=== PATIENT | female | born 1950 | race Caucasian/White ===

== ENCOUNTER → 2019-04-05 11:56 | Outpatient (CLI) | payer OTHER, SELFPAY ==
--- NOTE | 2019-04-05 | DI.MG.S_ITS ---
BILATERAL DIGITAL SCREENING MAMMOGRAM 3D/2D WITH CAD: 04/05/2019 CLINICAL: Routine screening. Comparison is made to exams dated: 03/26/2017 mammogram, 03/16/2015 mammogram, and 11/15/2012 mammogram - [facility]. There are scattered fibroglandular elements in both breasts. Current study was also evaluated with a Computer Aided Detection (CAD) system. There are benign vascular calcifications in both breasts. There is a mole marker on the left breast. No significant masses, calcifications, or other findings are seen in either breast. There has been no significant interval change. IMPRESSION: There is no mammographic evidence of malignancy. A 1 year screening mammogram is recommended. This exam was interpreted at Station ID: [id number]. NOTE: For mammograms, a report in lay terms will be sent to the patient. Approximately 15% of breast malignancies will not be visualized mammographically. In the management of a palpable breast mass, a negative mammogram must not discourage biopsy of a clinically suspicious lesion. Electronically Signed By: Brian johnston/emory:04/05/2019 18:29:29 letter sent: Normal Exam ACR BI-RADS Category 2: Benign Finding(s) 3342F
== END ==
PROVIDERS: PCP Nurse Practitioner Family; Visit Provider Nurse Practitioner Family
DX: Z12.31 Encounter for screening mammogram for malignant neoplasm of breast (principal)
CPT/HCPCS: 77063; 77067

== ENCOUNTER → 2020-05-23 13:43 | Outpatient (CLI) | payer OTHER, SELFPAY | PROVIDERS: PCP Nurse Practitioner Family; Referring Provider Internal Medicine; Visit Provider Internal Medicine | DX: M85.851 Other specified disorders of bone density and structure, right thigh (principal) | CPT/HCPCS: 77080 ==

== ENCOUNTER → 2020-08-02 15:32 | Outpatient (CLI) | payer MEDICARE, SELFPAY ==
[2020-08-02] MEDS: COVID-19 VACC, Ad26(JANSSEN)/PF 0.5 ML IM (15:34)
== END ==
PROVIDERS: PCP Nurse Practitioner Family; Visit Provider Internal Medicine
DX: Z23 Encounter for immunization (principal)
CPT/HCPCS: 0031A; 91303

== ENCOUNTER → 2021-09-25 15:29 | Outpatient (CLI) | payer OTHER, SELFPAY ==
--- NOTE | 2021-09-25 | DI.MG.S_ITS ---
BILATERAL DIGITAL SCREENING MAMMOGRAM 3D/2D WITH CAD: 09/25/2021 CLINICAL: Routine screening. Family history of breast cancer. Comparison is made to exams dated: 04/05/2019 mammogram, 03/26/2017 mammogram, 03/16/2015 mammogram, and 11/15/2012 mammogram - [facility]. There are scattered fibroglandular elements in both breasts. Current study was also evaluated with a Computer Aided Detection (CAD) system. There are benign vascular calcifications in both breasts. There is a mole marker on the left breast. No significant masses, calcifications, or other findings are seen in either breast. There has been no significant interval change. IMPRESSION: BENIGN There is no mammographic evidence of malignancy. A 1 year screening mammogram is recommended. This exam was interpreted at Station ID: [id number]. NOTE: For mammograms, a report in lay terms will be sent to the patient. Approximately 15% of breast malignancies will not be visualized mammographically. In the management of a palpable breast mass, a negative mammogram must not discourage biopsy of a clinically suspicious lesion. Electronically Signed By: Zain glover/emory:09/25/2021 16:20:49 letter sent: Normal Exam ACR BI-RADS Category 2: Benign Finding(s) 3342F
== END ==
PROVIDERS: PCP Internal Medicine; Referring Provider Internal Medicine; Visit Provider Internal Medicine
DX: Z12.31 Encounter for screening mammogram for malignant neoplasm of breast (principal); Z80.3 Family history of malignant neoplasm of breast
CPT/HCPCS: 77063; 77067

== ENCOUNTER → 2022-04-03 12:56 | Outpatient (CLI) | payer OTHER, SELFPAY | PROVIDERS: PCP Internal Medicine; Referring Provider Internal Medicine; Visit Provider Internal Medicine | DX: Z78.0 Asymptomatic menopausal state (principal); M85.851 Other specified disorders of bone density and structure, right thigh; Z13.820 Encounter for screening for osteoporosis | CPT/HCPCS: 77080 ==

== ENCOUNTER → 2023-03-31 12:16 | Outpatient (CLI) | payer OTHER, SELFPAY ==
--- NOTE | 2023-03-31 | DI.RAD.S_ITS ---
PROCEDURE: XR SHOULDER RT MIN 2V INDICATIONS: SHOULDER PAIN TECHNIQUE: 3 views of the shoulder were acquired. COMPARISON: None. FINDINGS: Bones: No fractures or dislocations. No suspicious bony lesions. Visualized ribs appear intact. Mild acromioclavicular and glenohumeral joint osteoarthritis. Soft tissues: No suspicious soft tissue calcifications. IMPRESSION: No fracture. No acute osseous lesion. If symptoms and/or clinical suspicion for pathology persists, further assessment with repeat radiographs (7-10 days) or advanced imaging (e.g. CT, MRI or bone scan) should be considered. Dictated by: Columba Irwin MD, PhD on 03/31/2023 at 13:27 Approved by: Columba Irwin MD, PhD on 03/31/2023 at 13:27
== END ==
PROVIDERS: PCP Internal Medicine; Referring Provider Internal Medicine; Visit Provider Internal Medicine
DX: M19.011 Primary osteoarthritis, right shoulder (principal); M25.511 Pain in right shoulder
CPT/HCPCS: 73030

== ENCOUNTER 2023-07-06 13:34 | Emergency (ER) | payer OTHER, SELFPAY ==
[2023-07-06 13:54] VITALS: BP 161/88; PULSE 72; RESP 16; TEMP 36.5; O2SAT 99; BMI 29.0
[2023-07-06 15:34] LABS: Alanine Aminotransferase 23 IU/L (<35)
[2023-07-06 16:26] LABS: HIV 1 & 2 Ab/Ag 4th Gen Combo NEGATIVE (NEGATIVE); Hep C Virus Ab w/Reflex Quant NEGATIVE s/c (NEGATIVE)
[2023-07-06 17:03] VITALS: BP 134/63; PULSE 71; RESP 20; O2SAT 98
--- NOTE | 2023-07-07 19:09 | ED.GENADULT ---
HPI - General Adult <Colin Pelayo PA-C - Last Filed: 07/07/23 19:13> General Chief complaint: Blood/Body fluid exposure Stated complaint: originator sharp stick Time Seen by Provider: 07/06/23 14:01 Source: patient Mode of arrival: Ambulatory History of Present Illness HPI narrative: 73-year-old female presents to the ED to get labs drawn for a blood or bodily exposure panel. Patient was getting some dental work done today, when the dentist was using a bur and stuck himself, causing an blood/body fluids exposure to himself. Tetanus is up-to-date Related Data Allergies Allergy/AdvReac Type Severity Reaction Status Date / Time No Known Drug Allergies Allergy Verified 07/06/23 13:59 Review of Systems <Colin Pelayo PA-C - Last Filed: 07/07/23 19:13> Review of Systems Narrative: ROS per HPI Constitutional Constitutional: Reports as per HPI Patient History <Colin Pelayo PA-C - Last Filed: 07/07/23 19:13> Social History Smoking Status: Never smoker Smoking Status: Never smoker Substance Use Type: does not use Exam <Colin Pelayo PA-C - Last Filed: 07/07/23 19:13> Initial Vital Signs Initial Vital Signs: Vital Signs Temperature 97.7 F 07/06/23 13:54 Pulse Rate 72 07/06/23 13:54 Respiratory Rate 16 07/06/23 13:54 Blood Pressure 161/88 H 07/06/23 13:54 Pulse Oximetry 99 07/06/23 13:54 Oxygen Delivery Method Room Air 07/06/23 13:54 Const General: cooperative, healthy appearing, comfortable and well groomed <Josephine Cross DO - Last Filed: 07/13/23 07:10> Initial Vital Signs Initial Vital Signs: Vital Signs Temperature 97.7 F 07/06/23 13:54 Pulse Rate 72 07/06/23 13:54 Respiratory Rate 16 07/06/23 13:54 Blood Pressure 161/88 H 07/06/23 13:54 Pulse Oximetry 99 07/06/23 13:54 Oxygen Delivery Method Room Air 07/06/23 13:54 Medical Decision Making <Colin Pelayo PA-C - Last Filed: 07/07/23 19:13> Lab Data Labs: Lab Results 07/06/23 Range/Units 14:20 ALT 23 (<35) IU/L Hep Bs Antibody Non reactive (.) Hepatitis C Antibody Negative (NEGATIVE) s/c HIV 1&2 Ab/P24 Ag 4thGn Negative (NEGATIVE) MDM Narrative Medical decision making narrative: 73-year-old female presents to the ED to get labs drawn for a blood or bodily exposure panel. Labs drawn for ALT, hep B antibody, hep C antibody, HIV test. Hep C antibody negative HIV negative ALT within normal limits. Hep B pending since it is a send out. Discussed findings with patient. Patient verbalized understanding. Medical records reviewed: Yes <Josephine Cross DO - Last Filed: 07/13/23 07:10> Lab Data Labs: Lab Results 07/06/23 Range/Units 14:20 ALT 23 (<35) IU/L Hep Bs Antibody Non reactive (.) Hepatitis C Antibody Negative (NEGATIVE) s/c HIV 1&2 Ab/P24 Ag 4thGn Negative (NEGATIVE) Discharge Plan Departure Patient Disposition: Home Clinical Impression: Exposure to body fluid Instructions: DI for Accidental Exposure to Body Fluids Activity Restrictions/Additional Instructions: You were evaluated in the ED today for your denstist's accidental exposure to your body fluids from a dental bur. We tested for ALT which was within normal limits. Hepatitis-C antibody was negative and HIV test was negative. Hep B antibody test has been sent out to the lab and we will contact you if it is abnormal. Source testing was negative as well. It appears that your tetanus is up-to-date. No indication for any prophylaxis at this time. Referrals: Connie Giles ARNP [Primary Care Provider] - Stand Alone Forms: Patient Portal/API ED Sign-out <Josephine Cross DO - Last Filed: 07/13/23 07:10> Cosign ED Attending Tgature Attestation: I was immediately available in the department for consultation.
[2023-07-09 09:15] LABS: Hepatitis B Surf Ab Qualitativ Non Reactive (.)
== END 2023-07-06 17:03 | disposition home or self-care (01) ==
PROVIDERS: Emergency Medicine; Emergency Provider Student in an Organized Health Care Education/Training Program; Family Provider Internal Medicine; PCP Internal Medicine
DX: Z77.21 Contact with and (suspected) exposure to potentially hazardous body fluids (principal); Y99.0 Civilian activity done for income or pay
CPT/HCPCS: 36415; 84460; 86706; 86803; 87389; 99281; 99283

== ENCOUNTER → 2023-11-16 07:49 | Outpatient (CLI) | payer OTHER, SELFPAY ==
--- NOTE | 2023-11-16 | DI.MG.S_ITS ---
BILATERAL DIGITAL SCREENING MAMMOGRAM 3D/2D WITH CAD: 11/16/2023 CLINICAL: Routine screening. Family history of breast cancer. Comparison is made to exams dated: 09/25/2021 mammogram, 04/05/2019 mammogram, and 03/26/2017 mammogram - [facility]. There are scattered areas of fibroglandular density in both breasts (category b / 25%-50% glandular tissue). Current study was also evaluated with a Computer Aided Detection (CAD) system. There are benign vascular calcifications in both breasts. There is a mole marker on the left breast. No significant masses, calcifications, or other findings are seen in either breast. There has been no significant interval change. IMPRESSION: BENIGN There is no mammographic evidence of malignancy. A 1 year screening mammogram is recommended. Based on the Tyrer Cuzick model (a risk assessment model) the patient's lifetime risk is 2.9% and her 10 year risk is 2.4%. According to the ACR, ACS, and NCCN guidelines, an annual breast MRI exam along with mammogram is recommended if the patient's lifetime risk is 20% or greater. This exam was interpreted at Station ID: [id number]. NOTE: For mammograms, a report in lay terms will be sent to the patient. Approximately 15% of breast malignancies will not be visualized mammographically. In the management of a palpable breast mass, a negative mammogram must not discourage biopsy of a clinically suspicious lesion. Electronically Signed By: Dante leigh/emory:11/16/2023 09:15:56 letter sent: Normal Exam ACR BI-RADS Category 2: Benign Finding(s) 3342F
== END ==
LOC: MAMMO 07:50
PROVIDERS: Family Provider Internal Medicine; PCP Internal Medicine; Referring Provider Internal Medicine; Visit Provider Internal Medicine
DX: Z12.31 Encounter for screening mammogram for malignant neoplasm of breast (principal); Z80.3 Family history of malignant neoplasm of breast; R92.323 Mammographic fibroglandular density, bilateral breasts
CPT/HCPCS: 77063; 77067